=== PATIENT | male | born 1975 | race Caucasian/White ===

== ENCOUNTER 2017-09-28 19:44 | Inpatient (IN) | payer BC ==
[~2017-09-28] VITALS: Ht 175.3 cm; Wt 81.1 kg
[~2017-09-28 19:44] MED LIST: CYCL1PAK PO; DOCU1CAP39 PO; IBUP800 PO; OXYC5 PO
[2017-09-28 19:56] VITALS: BP 138/78; PULSE 73; RESP 16; TEMP 100; O2SAT 95
[2017-09-28 21:15] LABS: BILIRUBIN, URINE NEG (NEG); BLOOD, URINE TRACE (NEG); GLUCOSE,URINE NEG (NEG); KETONE, URINE NEG (NEG); NITRITE,URINE NEG (NEG); URINE COLOR YELLOW (YELLW/STRAW); URINE LEUKOCYTE ESTERASE SMALL (NEG)
[2017-09-28 21:34] LABS: BACTERIA, URINE RARE /hpf; RBC, URINE 0-3 /hpf (0-3); SQUAMOUS EPITHELIAL CELL URINE 0-5 /hpf (0-5); WHITE BLOOD CELL CLUMPS MOD
[2017-09-28 21:48] VITALS: TEMP 101.4
[2017-09-28] MEDS ORDERED: SODIUM CHLOR 0.9% 1000 ML INJ 1,000 ML IV SCH (21:55)
--- NOTE | 2017-09-28 21:58 | PD ---
HPI Chief Complaint: Flank/Kidney Pain Time Seen by Provider: 21:43 Travel History International Travel<30 days: No Contact w/Intl Traveler<30days: No Traveled to known affect area: No History of Present Illness HPI Patient is a 41-year-old male presents emergency department with right flank pain dysuria and just not feeling well for the past day and a half. Patient is in town as he participates in dirt bike racing. He states he has had urinary tract infection in the past only one time and has been feeling very poorly over the past few days. He is also endorsing some nausea without vomiting, just generally not feeling well at all. No chest pain no shortness of breath no blood in urine no fevers prior to arrival. Symptoms for the past few days, gradually worsening. PFSH Past Medical History Arthritis: Yes (FROM PAST SX) Cardiovascular Problems: No Diminished Hearing: No Endocrine: No Neurologic: Yes Psychiatric: No Respiratory: Yes (HX PNEUMOTHORAX) Migraines: Yes Tetanus Vaccination: < 5 Years Influenza Vaccination: No Past Surgical History Abdominal Surgery: No Body Medical Devices: PLATES/SCREWS Cardiac Surgery: No Ear Surgery: No Endocrine Surgery: No Eye Surgery: No Genitourinary Surgery: No Gynecologic Surgery: No Oral Surgery: No Thoracic Surgery: No Tonsillectomy: Yes Other Surgery: Yes (RIGHT KNEE SX/ BILATERAL WRIST SX) Social History Alcohol Use: Yes (3X A WEEK) Tobacco Use: No (MARIJUANA) Substance Use: No Allergies-Medications (Allergen,Severity, Reaction): Coded Allergies: penicillin G (Unverified Allergy, Unknown, 09/28/17) Reported Meds & Prescriptions Reported Meds & Active Scripts Active Review of Systems Except as stated in HPI: all other systems reviewed are Neg Physical Exam Narrative GENERAL: WD/WN in nad SKIN: Hot and dry. HEAD: Atraumatic. Normocephalic. EYES: Pupils equal and round. No scleral icterus. No injection or drainage. ENT: No nasal bleeding or discharge. Mucous membranes pink and moist. NECK: Trachea midline. No JVD. CARDIOVASCULAR: Regular rate and rhythm. RESPIRATORY: No accessory muscle use. Clear to auscultation. Breath sounds equal bilaterally. GASTROINTESTINAL: Abdomen soft, non-tender, nondistended. Hepatic and splenic margins not palpable. Very mild right-sided CVA tenderness. MUSCULOSKELETAL: Extremities without clubbing, cyanosis, or edema. No obvious deformities. NEUROLOGICAL: Awake and alert. No obvious cranial nerve deficits. Motor grossly within normal limits. Five out of 5 muscle strength in the arms and legs. Normal speech. PSYCHIATRIC: Appropriate mood and affect; insight and judgment normal. Data Data Last Documented VS Vital Signs Date Time Temp Pulse Resp B/P (MAP) Pulse Ox O2 Delivery O2 Flow Rate FiO2 09/29/17 00:33 20 09/28/17 21:48 101.4 09/28/17 19:56 73 138/78 (98) 95 Orders Orders Urinalysis - C+S If Indicated (09/28/17 21:02) Urine Culture (09/28/17 20:20) Complete Blood Count With Diff (09/28/17 21:55) Comprehensive Metabolic Panel (09/28/17 21:55) Lipase (09/28/17 21:55) Iv Access Insert/Monitor (09/28/17 21:55) Ecg Monitoring (09/28/17 21:55) Oximetry (09/28/17 21:55) Sodium Chlor 0.9% 1000 Ml Inj (Ns 1000 M (09/28/17 21:55) Sodium Chloride 0.9% Flush (Ns Flush) (09/28/17 22:00) Ketorolac Inj (Toradol Inj) (09/28/17 22:00) Lactic Acid (09/28/17 21:56) Sodium Chlor 0.9% 1000 Ml Inj (Ns 1000 M (09/28/17 22:00) Ct Abd/Pel W/O Iv Contrast (09/28/17 ) Blood Culture (09/28/17 23:09) Ceftriaxone Inj (Rocephin Inj) (09/28/17 23:15) Sodium Chlor 0.9% 1000 Ml Inj (Ns 1000 M (09/28/17 23:30) Acetaminophen (Tylenol) (09/28/17 23:30) Ondansetron Inj (Zofran Inj) (09/28/17 23:30) Diphenhydramine (Benadryl) (09/29/17 00:45) Influenzae A/B Antigen (09/29/17 00:38) Ibuprofen (Motrin) (09/29/17 00:45) Ondansetron Inj (Zofran Inj) (09/29/17 01:00) Diphenhydramine Inj (Benadryl Inj) (09/29/17 01:00) Admit Order (Ed Use Only) (09/29/17 ) Ceftriaxone Inj (Rocephin Inj) (09/29/17 23:00) Morphine Inj (Morphine Inj) (09/29/17 01:00) Place In Observation (09/29/17 ) Vital Signs (Adult) Q4H (09/29/17 00:56) Activity Oob With Assistance (09/29/17 00:56) Diet Regular Basic (09/29/17 Breakfast) Sodium Chlor 0.9% 1000 Ml Inj (Ns 1000 M (09/29/17 00:56) Sodium Chloride 0.9% Flush (Ns Flush) (09/29/17 01:00) Sodium Chloride 0.9% Flush (Ns Flush) (09/29/17 09:00) Acetaminophen (Tylenol) (09/29/17 01:00) Ondansetron Inj (Zofran Inj) (09/29/17 01:00) Basic Metabolic Panel (Bmp) (09/30/17 06:00) Complete Blood Count With Diff (09/30/17 06:00) Naloxone Inj (Narcan Inj) (09/29/17 01:00) Docusate Sodium-Senna (Velma-Colace) (09/29/17 09:00) Magnesium Hydroxide Liq (Milk Of Magnesi (09/29/17 01:00) Sennosides (Senokot) (09/29/17 01:00) Bisacodyl Supp (Dulcolax Supp) (09/29/17 01:00) Lactulose Liq (Lactulose Liq) (09/29/17 01:00) Labs Laboratory Tests Test 09/28/17 20:20 09/28/17 22:15 Urine Color YELLOW Urine Turbidity CLEAR Urine pH 6.0 Urine Specific [place] 1.010 Urine Protein NEG mg/dL Urine Glucose (UA) NEG mg/dL Urine Ketones NEG mg/dL Urine Occult Blood TRACE Urine Nitrite NEG Urine Bilirubin NEG Urine Urobilinogen 0.2 MG/DL Urine Leukocyte Esterase SMALL Urine RBC 0-3 /hpf Urine WBC 20-24 /hpf Urine WBC Clumps MOD Urine Squamous Epithelial Cells 0-5 /hpf Urine Bacteria RARE /hpf Microscopic Urinalysis Comment CULTURE INDICATED White Blood Count 18.9 TH/MM3 Red Blood Count 4.86 MIL/MM3 Hemoglobin 15.2 GM/DL Hematocrit 43.9 % Mean Corpuscular Volume 90.3 FL Mean Corpuscular Hemoglobin 31.2 PG Mean Corpuscular Hemoglobin Concent 34.5 % Red Cell Distribution Width 13.7 % Platelet Count 329 TH/MM3 Mean Platelet Volume 7.1 FL Neutrophils (%) (Auto) 85.4 % Lymphocytes (%) (Auto) 7.2 % Monocytes (%) (Auto) 6.2 % Eosinophils (%) (Auto) 0.3 % Basophils (%) (Auto) 0.9 % Neutrophils # (Auto) 16.0 TH/MM3 Lymphocytes # (Auto) 1.4 TH/MM3 Monocytes # (Auto) 1.2 TH/MM3 Eosinophils # (Auto) 0.1 TH/MM3 Basophils # (Auto) 0.2 TH/MM3 CBC Comment DIFF FINAL Differential Comment Blood Urea Nitrogen 13 MG/DL Creatinine 1.00 MG/DL Random Glucose 103 MG/DL Total Protein 8.1 GM/DL Albumin 4.2 GM/DL Calcium Level 8.9 MG/DL Alkaline Phosphatase 99 U/L Aspartate Amino Transf (AST/SGOT) 22 U/L Alanine Aminotransferase (ALT/SGPT) 29 U/L Total Bilirubin 0.5 MG/DL Sodium Level 137 MEQ/L Potassium Level 3.7 MEQ/L Chloride Level 103 MEQ/L Carbon Dioxide Level 26.6 MEQ/L Anion Gap 7 MEQ/L Estimat Glomerular Filtration Rate 82 ML/MIN Lactic Acid Level 1.6 mmol/L Lipase 62 U/L [facility] Medical Decision Making Medical Screen Exam Complete: Yes Emergency Medical Condition: Yes Differential Diagnosis UTI, pyelonephritis, kidney stone, sepsis, dehydration, influenza Narrative Course Patient room to the emergency department, he appears nontoxic but is febrile and does have an elevated white blood cell count 18,000. Once his white blood cell count had returned the patient technically meets SIRS criteria and septic and was started on antibiotics. He is given 2 L normal saline although his initial act as it was 1.6. Toradol and Tylenol were given for pain and fever and Zofran for nausea but the patient states he is actually feeling worse after his medications. Ibuprofen and Benadryl ordered as the patient states he needed something to help him sleep and he vomited these up. The patient with UTI and sepsis and probable right-sided pyelonephritis does meet admission criteria and I recommended that he states he is unable to tolerate his medicines at this time. He was given Rocephin IV. Discussed with Dr. Ching for admission. His vital signs are stable lactic acid negative he can go to regular telemetry Diagnosis Primary Impression: Sepsis secondary to UTI Admitting Information Admitting Physician Requests: Admit Condition: Stable Wali Coles MD Sep 28, 2017 21:58
[2017-09-28] MEDS ORDERED: KETOROLAC TROMETHAMINE 30 MG/ML (IVP) VIAL IVP ONE (22:00)
[2017-09-28] MEDS ORDERED: SODIUM CHLOR 0.9% 1000 ML INJ 1,000 ML IV ONE ×2 (22:00→23:30)
[2017-09-28] MEDS ORDERED: SODIUM CHLORIDE 0.9% FLUSH 10 ML FLUSH IV FLUSH PRN (22:00)
[2017-09-28 22:38] LABS: BASOPHIL # 0.2 TH/MM3 (0-0.2); BASOPHIL % 0.9 % (0.0-2.0); EOSINOPHIL # 0.1 TH/MM3 (0-0.4); EOSINOPHIL % 0.3 % (0.0-4.0); HEMATOCRIT 43.9 % (39.0-51.0); HEMOGLOBIN 15.2 GM/DL (13.0-17.0); LYMPH % 7.2 % (9.0-44.0); LYMPHOCYTE # 1.4 TH/MM3 (1.0-4.8); MEAN CELL VOLUME 90.3 FL (80.0-100.0); MEAN CORPUSCULAR HEMOGLOBIN 31.2 PG (27.0-34.0); MEAN CORPUSCULAR HGB CONC 34.5 % (32.0-36.0); MEAN PLATELET VOLUME 7.1 FL (7.0-11.0); MONO % 6.2 % (0.0-8.0); MONOCYTE # 1.2 TH/MM3 (0-0.9); NEUT % 85.4 % (16.0-70.0); PLATELET COUNT 329 TH/MM3 (150-450); RED BLOOD COUNT 4.86 MIL/MM3 (4.50-5.90); RED CELL DISTRIBUTION WIDTH 13.7 % (11.6-17.2); WHITE BLOOD COUNT 18.9 TH/MM3 (4.0-11.0)
[2017-09-28 22:41] LABS: CHLORIDE 103 MEQ/L (98-107); SODIUM (NA) 137 MEQ/L (136-145)
[2017-09-28 22:46] LABS: CALCIUM 8.9 MG/DL (8.5-10.1)
[2017-09-28 22:47] LABS: ALBUMIN 4.2 GM/DL (3.4-5.0); BICARBONATE 26.6 MEQ/L (21.0-32.0); BLOOD UREA NITROGEN 13 MG/DL (7-18); GLUCOSE,RANDOM 103 MG/DL (74-106)
[2017-09-28 22:50] VITALS: BP 148/74; PULSE 62; RESP 20; O2SAT 99
[2017-09-28 22:50] LABS: ALT (GPT) 29 U/L (12-78); AST (GOT) 22 U/L (15-37); GLOMERULAR FILTRATION RATE 82 ML/MIN (>89)
[2017-09-28 22:51] LABS: TOTAL BILIRUBIN ADULT 0.5 MG/DL (0.2-1.0); TOTAL PROTEIN 8.1 GM/DL (6.4-8.2)
[2017-09-28 22:53] LABS: ALKALINE PHOSPHATASE 99 U/L (45-117)
--- NOTE | 2017-09-28 23:12 | RADRPT ---
EXAM DATE/TIME: 09/28/2017 22:38 [facility] COMPARISON: No previous studies available for comparison. INDICATIONS : Gross hematuria. Bilateral flank pain. ORAL CONTRAST: No oral contrast ingested. RADIATION DOSE: 8.79 CTDIvol (mGy) MEDICAL HISTORY : None SURGICAL HISTORY : None. ENCOUNTER: Initial ACUITY: 1 day PAIN SCALE: 6/10 LOCATION: Bilateral flank TECHNIQUE: Volumetric scanning of the abdomen and pelvis was performed. Using automated exposure control and ad justment of the mA and/or kV according to patient size, radiation dose was kept as low as reasonably achievable to obtain optimal diagnostic quality images. DICOM format image data is available electro nically for review and comparison. FINDINGS: LOWER LUNGS: The visualized lower lungs are clear. LIVER: Homogeneous density without lesion. There is no dilation of the biliary tree. No calcified gallston es. SPLEEN: Normal size without lesion. PANCREAS: Within normal limits. KIDNEYS: Normal in size and shape. There is no mass, stone, or hydronephrosis. ADRENAL GLANDS: Within normal limits. VASCULAR: There is no aortic aneurysm. BOWEL/MESENTERY: The stomach, small bowel, and colon demonstrate no acute abnormality. There is no free intraperitone al air or fluid. ABDOMINAL WALL: Within normal limits. RETROPERITONEUM: There is no lymphadenopathy. BLADDER: No wall thickening or mass. REPRODUCTIVE: Within normal limits. A few benign phleboliths are identified in the deep left pelvis. INGUINAL: There is no lymphadenopathy or hernia. MUSCULOSKELETAL: Within normal limits for patient age. Incidental note is made of a 2.7 cm intramuscular lipoma in the left latissimus muscle belly. CONCLUSION: 1. 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 2. Otherwise negative with no acute intraperitoneal or pelvic process to explain current clinical sym ptoms. Specifically, no findings of renal or ureteral calculi or obstruction. Matt Asencio MD on September 28, 2017 at 23:04 Board Certified Radiologist. This report was verified electronically.
[2017-09-28] MEDS ORDERED: cefTRIAXone INJ 1,000 MG in SODIUM CHLORIDE 0.9% INJ 100 ML IV ONE (23:15)
[2017-09-28] MEDS ORDERED: ACETAMINOPHEN 500 MG CPLT PO ONE (23:30)
[2017-09-28] MEDS ORDERED: ONDANSETRON HCL 4 MG/2 ML VIAL IV PUSH ONE (23:30)
[2017-09-28 23:50] VITALS: BP_SYST 129; BP_SYST 143; BP_DIAS 66; BP_DIAS 79; PULSE 70; PULSE 76; RESP 20
[2017-09-29] VITALS (8 sets, daily range): BP systolic 118–145; BP diastolic 64–82; PULSE 71–80; RESP 16–20; TEMP 98.3–102.7; O2SAT 94–98
[2017-09-29] MEDS ORDERED: IBUPROFEN 600 MG TAB PO ONE (00:45)
[2017-09-29] MEDS ORDERED: diphenhydrAMINE HCL 25 MG CAP PO ONE (00:45)
[2017-09-29] MEDS ORDERED: SENNOSIDES 8.6 MG TAB PO PRN (01:00)
[2017-09-29] MEDS ORDERED: ONDANSETRON HCL 4 MG/2 ML VIAL IV PUSH ONE (01:00)
[2017-09-29] MEDS ORDERED: BISACODYL 10 MG SUPP RECTAL PRN (01:00)
[2017-09-29] MEDS ORDERED: SODIUM CHLORIDE 0.9% FLUSH 10 ML FLUSH IV FLUSH PRN (01:00)
[2017-09-29] MEDS ORDERED: NALOXONE HCL 0.4 MG/ML AMP IV PUSH PRN (01:00)
[2017-09-29] MEDS ORDERED: diphenhydrAMINE HCL 50 MG/ML VIAL IV PUSH ONE (01:00)
[2017-09-29] MEDS ORDERED: MAGNESIUM HYDROXIDE SUSP 30 ML CUP PO PRN (01:00)
[2017-09-29] MEDS ORDERED: LACTULOSE SYRUP 20 GM/30 ML CUP PO PRN (01:00)
[2017-09-29] MEDS: MORPHINE SULFATE 2 MG/ML INJ IV PUSH PRN ×4 (02:42→16:43)
[2017-09-29] MEDS: SODIUM CHLOR 0.9% 1000 ML INJ 1,000 ML IV SCH ×2 (02:44→09:02)
[2017-09-29] MEDS: ONDANSETRON HCL 4 MG/2 ML VIAL IVP PRN ×3 (06:57→20:19)
[2017-09-29] MEDS: DOCUSATE SODIUM 50 MG/SENNA 8.6 MG TAB PO SCH ×2 (09:00→20:19)
[2017-09-29] MEDS: SODIUM CHLORIDE 0.9% FLUSH 10 ML FLUSH IV FLUSH SCH ×2 (09:00→20:20)
--- NOTE | 2017-09-29 09:51 | HHI.HP ---
[facility] Primary [facility] Physician No Primary Care Physician Admission Diagnosis UTI/Sepsis Diagnoses: (1) Sepsis secondary to UTI Chief Complaint: Dysuria Travel History International Travel<30 Days: No Contact w/Intl Traveler <30 Da: No Traveled to Known Affected Are: No Sepsis Criteria SIRS Criteria (2 or more): Temp > 100.9 or < 96.8, WBC > 12696, < 4000 or > 10 % bands Sepsis Criteria (SIRS+source): Infect source susp/known History of Present Illness 41-year-old male without any significant past medical history presented to the ED with 3 day history of dysuria ,bilateral flank pain described as Dusty horse and febrile episodes patient also reports one day history of nausea and vomiting. States generally hasn't been feeling well over the past few days. He denies any chest pain or shortness of breath. Denies any gross hematuria. Review of Systems Except as stated in HPI: all other systems reviewed are Neg Past Family Social History Past Medical History Arthritis: Yes (FROM PAST SX) Respiratory: Yes (HX PNEUMOTHORAX) Migraines: Yes Past Surgical History Body Medical Devices: PLATES/SCREWS Tonsillectomy: Yes (RIGHT KNEE SX/ BILATERAL WRIST SX) \ Reported Medications Not currently on any medication Allergies: Coded Allergies: penicillin G (Unverified Allergy, Unknown, 09/28/17) Family History Denies any family history of hypertension, diabetes, heart disease Social History Alcohol Use: Yes (3X A WEEK) Tobacco Use: No (MARIJUANA) Substance Use: No Physical Exam Vital Signs Vital Signs Date Time Temp Pulse Resp B/P (MAP) Pulse Ox O2 Delivery O2 Flow Rate FiO2 09/29/17 08:00 98.3 73 20 118/75 (89) 96 09/29/17 04:12 98.9 75 20 125/66 (85) 96 09/29/17 03:52 20 09/29/17 02:45 101.1 73 20 122/69 (86) 98 09/29/17 01:48 102.7 09/29/17 01:18 102.5 80 20 131/64 (86) 98 09/29/17 00:33 20 09/28/17 23:50 70 20 129/66 (87) 09/28/17 23:50 76 20 143/79 (100) 09/28/17 22:50 62 20 148/74 (98) 99 09/28/17 21:48 101.4 09/28/17 21:42 20 09/28/17 19:56 100.0 73 16 138/78 (98) 95 Physical Exam GENERAL: This is a well-nourished, well-developed patient, in no apparent distress. SKIN: No rashes, ecchymoses or lesions. Cool and dry. HEAD: Atraumatic. Normocephalic. No temporal or scalp tenderness. EYES: Pupils equal round and reactive. Extraocular motions intact. No scleral icterus. No injection or drainage. ENT: Nose without bleeding, purulent drainage or septal hematoma. Throat without erythema, tonsillar hypertrophy or exudate. Uvula midline. Airway patent. NECK: Trachea midline. No JVD or lymphadenopathy. Supple, nontender, no meningeal signs. CARDIOVASCULAR: Regular rate and rhythm without murmurs, gallops, or rubs. RESPIRATORY: Clear to auscultation. Breath sounds equal bilaterally. No wheezes , rales, or rhonchi. GASTROINTESTINAL: Abdomen soft, non-tender, nondistended. No hepato-splenomegaly , or palpable masses. No guarding. MUSCULOSKELETAL: Extremities without clubbing, cyanosis, or edema. No joint tenderness, effusion, or edema noted. No calf tenderness. Negative Homans sign bilaterally. NEUROLOGICAL: Awake and alert. Cranial nerves II through XII intact. Motor and sensory grossly within normal limits. Five out of 5 muscle strength in all muscle groups. Normal speech. Laboratory Laboratory Tests Test 09/28/17 20:20 09/28/17 22:15 Urine Color YELLOW Urine Turbidity CLEAR Urine pH 6.0 Urine Specific [place] 1.010 Urine Protein NEG Urine Glucose (UA) NEG Urine Ketones NEG Urine Occult Blood TRACE Urine Nitrite NEG Urine Bilirubin NEG Urine Urobilinogen 0.2 Urine Leukocyte Esterase SMALL Urine RBC 0-3 Urine WBC 20-24 Urine WBC Clumps MOD Urine Squamous Epithelial Cells 0-5 Urine Bacteria RARE Microscopic Urinalysis Comment CULTURE INDICATED White Blood Count 18.9 Red Blood Count 4.86 Hemoglobin 15.2 Hematocrit 43.9 Mean Corpuscular Volume 90.3 Mean Corpuscular Hemoglobin 31.2 Mean Corpuscular Hemoglobin Concent 34.5 Red Cell Distribution Width 13.7 Platelet Count 329 Mean Platelet Volume 7.1 Neutrophils (%) (Auto) 85.4 Lymphocytes (%) (Auto) 7.2 Monocytes (%) (Auto) 6.2 Eosinophils (%) (Auto) 0.3 Basophils (%) (Auto) 0.9 Neutrophils # (Auto) 16.0 Lymphocytes # (Auto) 1.4 Monocytes # (Auto) 1.2 Eosinophils # (Auto) 0.1 Basophils # (Auto) 0.2 CBC Comment DIFF FINAL Differential Comment Blood Urea Nitrogen 13 Creatinine 1.00 Random Glucose 103 Total Protein 8.1 Albumin 4.2 Calcium Level 8.9 Alkaline Phosphatase 99 Aspartate Amino Transf (AST/SGOT) 22 Alanine Aminotransferase (ALT/SGPT) 29 Total Bilirubin 0.5 Sodium Level 137 Potassium Level 3.7 Chloride Level 103 Carbon Dioxide Level 26.6 Anion Gap 7 Estimat Glomerular Filtration Rate 82 Lactic Acid Level 1.6 Lipase 62 Date/Time Source Procedure Growth Status 09/28/17 23:40 Blood Peripheral Aerobic Blood Culture Pending Received 09/28/17 23:40 Blood Peripheral Anaerobic Blood Culture Pending Received 09/29/17 00:40 Nasal Washing Influenza Types A,B Antigen (YOHAN) - Final Positive For Flu A Antigen Complete 09/28/17 20:20 Urine Clean Catch Urine Culture Pending Received Result Diagram: 09/28/17 2215 09/28/17 2215 Imaging Last Impressions Abdomen/Pelvis CT 09/28/17 0000 Signed Impressions: Service Date/Time: September 22:38 - CONCLUSION: 1. 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 2. Otherwise negative with no acute intraperitoneal or pelvic process to explain current clinical symptoms. Specifically, no findings of renal or ureteral calculi or obstruction. Matt Asencio MD Septic Shock Reassessment Septic shock perfusion: reassessment completed Caprini VTE Risk Assessment Caprini VTE Risk Assessment: No/Low Risk (score <= 1) Caprini Risk Assessment Model Point Value = 1 Point Value = 2 Point Value = 3 Point Value = 5 Age 41-60 Minor surgery BMI > 25 kg/m2 Swollen legs Varicose veins or History of unexplained or recurrent spontaneous Oral contraceptives or hormone replacement Sepsis (< 1 month) Serious lung disease, including pneumonia (< 1 month) Abnormal pulmonary function Acute myocardial infarction Congestive heart failure (< 1 month) History of inflammatory bowel disease Medical patient at bed rest Age 61-74 Arthroscopic surgery Major open surgery (> 45 min) Laparoscopic surgery (> 45 min) Malignancy Confined to bed (> 72 hours) Immobilizing plaster cast Central venous access Age >= 75 History of VTE Family history of VTE Factor V Leiden Prothrombin 80260L Lupus anticoagulant Anticardiolipin antibodies Elevated serum homocysteine Heparin-induced thrombocytopenia Other congenital or acquired thrombophilia Stroke (< 1 month) Elective arthroplasty Hip, pelvis, or leg fracture Acute spinal cord injury (< 1 month) Prophylaxis Regimen Total Risk Factor Score Risk Level Prophylaxis Regimen 0-1 Low Early ambulation 2 Moderate Order ONE of the following: *Sequential Compression Device (SCD) *Heparin 5000 units SQ BID 3-4 Higher Order ONE of the following medications: *Heparin 5000 units SQ TID *Enoxaparin/Lovenox 40 mg SQ daily (WT < 150 kg, CrCl > 30 mL/min) *Enoxaparin/Lovenox 30 mg SQ daily (WT < 150 kg, CrCl > 10-29 mL/min) *Enoxaparin/Lovenox 30 mg SQ BID (WT < 150 kg, CrCl > 30 mL/min) AND/OR *Sequential Compression Device (SCD) 5 or more Highest Order ONE of the following medications: *Heparin 5000 units SQ TID (Preferred with Epidurals) *Enoxaparin/Lovenox 40 mg SQ daily (WT < 150 kg, CrCl > 30 mL/min) *Enoxaparin/Lovenox 30 mg SQ daily (WT < 150 kg, CrCl > 10-29 mL/min) *Enoxaparin/Lovenox 30 mg SQ BID (WT < 150 kg, CrCl > 30 mL/min) AND *Sequential Compression Device (SCD) Assessment and Plan Problem List: (1) Sepsis secondary to UTI ICD Code: A41.9 - Sepsis, unspecified organism; N39.0 - Urinary tract infection , site not specified Status: Acute (2) Influenza A ICD Code: J10.1 - Influenza due to other identified influenza virus with other respiratory manifestations (3) Pyelonephritis ICD Code: N12 - Tubulo-interstitial nephritis, not specified as acute or chronic Assessment and Plan 41-year-old man with Sepsis: Temp > 100.9 or < 96.8, WBC > 50529, < 4000 or > 10% bands. Infect source susp/known (pyelonephritis/UTI) Currently on Rocephin pending culture reports Pyelonephritis CT abdomen noted and review by me without any significant finding Check ultrasound kidney/renal/bladder Currently on Rocephin pending urine culture Influenza A Start Tamiflu 75 mg BID x 5 days DVT prophylaxis:Low risk for VTE Code Status Full code Discussed Condition With Patient Physician Certification 2 Midnight Certification Type: Admission for Inpatient Services Order for Inpatient Services The services are ordered in accordance with Medicare regulations or non- Medicare payer requirements, as applicable. In the case of services not specified as inpatient-only, they are appropriately provided as inpatient services in accordance with the 2-midnight benchmark. Estimated LOS (days): 2 days is the estimated time the patient will need to remain in the hospital, assuming treatment plan goals are met and no additional complications. Post-Hospital Plan: Not yet determined Bal Garcia MD Sep 29, 2017 09:51
[2017-09-29 11:24] LABS: BILIRUBIN, URINE NEG (NEG); BLOOD, URINE MOD (NEG); GLUCOSE,URINE NEG (NEG); KETONE, URINE NEG (NEG); NITRITE,URINE NEG (NEG); URINE COLOR YELLOW (YELLW/STRAW); URINE LEUKOCYTE ESTERASE SMALL (NEG)
--- NOTE | 2017-09-29 11:29 | RADRPT ---
EXAM DATE/TIME: 09/29/2017 11:01 [facility] COMPARISON: No previous studies available for comparison. INDICATIONS : Flank pain. MEDICAL HISTORY : Migraine. Arthritis. SURGICAL HISTORY : Tonsillectomy. Orthopedic surgeries. ENCOUNTER: Initial ACUITY: 1 day PAIN SCORE: 3/10 LOCATION: Bilateral flank MEASUREMENTS: RIGHT KIDNEY: 11.7 x 4.6 x 5.7 cm LEFT KIDNEY: 11.7 x 6.4 x 5.7 cm FINDINGS: RIGHT KIDNEY: Renal cortex is normal in thickness and echotexture. No hydronephrosis, stone, or mass. LEFT KIDNEY: Renal cortex is normal in thickness and echotexture. No hydronephrosis, stone, or mass. BLADDER: Within normal limits given the degree of distension. The prostate gland is minimally prominent and m easures 4.9 x 3.6 x 4.7 cm. CONCLUSION: 1. Unremarkable kidneys and urinary bladder. 2. Minimally prominent prostate measuring 4.9 x 3.6 x 4.7 cm. Wali Cornejo MD on September 29, 2017 at 11:25 Board Certified Radiologist. This report was verified electronically.
[2017-09-29 11:33] LABS: RBC, URINE 0-3 /hpf (0-3); SQUAMOUS EPITHELIAL CELL URINE 0-5 /hpf (0-5)
[2017-09-29] MEDS: OSELTAMIVIR PHOSPHATE 75 MG CAP PO SCH ×2 (11:56→20:19)
[2017-09-29] MEDS: ACETAMINOPHEN/HYDROcodone 325 MG/5 MG TAB PO PRN (20:19)
[2017-09-29] MEDS: ACETAMINOPHEN 325 MG TAB PO PRN (22:05)
[2017-09-29] MEDS: ALPRAZolam 0.5 MG TAB PO PRN (22:05)
[2017-09-29] MEDS: cefTRIAXone INJ 1,000 MG in SODIUM CHLORIDE 0.9% INJ 100 ML IV SCH (22:06)
[2017-09-30 00:17] VITALS: BP 111/60; PULSE 58; RESP 16; TEMP 99.3; O2SAT 96
[2017-09-30] MEDS: SODIUM CHLOR 0.9% 1000 ML INJ 1,000 ML IV SCH ×3 (01:13→22:13)
[2017-09-30 04:00] VITALS: TEMP 100.3
[2017-09-30] MEDS: ACETAMINOPHEN/HYDROcodone 325 MG/5 MG TAB PO PRN (04:40)
[2017-09-30] MEDS: ONDANSETRON HCL 4 MG/2 ML VIAL IVP PRN ×2 (04:40→15:45)
[2017-09-30] MEDS: ACETAMINOPHEN 325 MG TAB PO PRN ×2 (04:45→23:30)
[2017-09-30 08:00] VITALS: BP 125/82; PULSE 60; RESP 18; TEMP 97.4; O2SAT 97
--- NOTE | 2017-09-30 08:07 | HHI.PR ---
Subjective Remarks Patient seen and examined today for follow-up on sepsis, urinary tract infection , influenza infection. Patient still febrile with T-max 100.8. Patient states that the morphine was causing have severe nausea. He does not want morphine anymore. Patient states that overnight they start him on Lortab, Xanax which seemed to help for his pain and anxiety. Patient did not eat much yesterday. However he states that he does feel a little better today Objective Vitals Vital Signs Date Time Temp Pulse Resp B/P (MAP) Pulse Ox O2 Delivery O2 Flow Rate FiO2 09/30/17 04:00 100.3 09/30/17 00:17 99.3 58 16 111/60 (77) 96 09/29/17 20:21 100.6 74 16 129/76 (93) 97 09/29/17 16:00 100.8 71 20 131/67 (88) 94 09/29/17 12:00 100.7 80 16 145/82 (103) 96 I/O 09/29/17 09/29/17 09/29/17 09/30/17 09/30/17 09/30/17 07:00 15:00 23:00 07:00 15:00 23:00 Intake Total 3420 ml 100 ml 1480 ml Output Total 300 ml Balance 3120 ml 100 ml 1480 ml Intake Oral 320 ml 480 ml IV Total 3100 ml 100 ml 1000 ml Output Urine Total 300 ml # Voids 1 8 6 Result Diagram: 09/28/175 09/28/175 Objective Remarks GENERAL: Well-developed, well-nourished, in no acute distress. alert and orientated HEENT: Head is normocephalic without any lesions or masses noted. Facial features are symmetric. Eyes: Extraocular muscles are intact. Conjunctivae were clear. NECK: Supple without any masses. Trachea midline no deviation. No JVD, CARDIAC: Regular rhythm, regular rate. S1/S2 are heard. No murmurs gallops or rubs. LUNGS: Clear to auscultation bilaterally. No wheeze, rhonchi or rales. No use of accessory muscles on inspiration or expiration. ABDOMEN: Soft, nontender. Nondistended. Bowel sounds heard in all 4 quadrants. No organomegaly or masses. Negative rebound, negative guarding. Positive right CVA tenderness EXTREMITIES: No edema, pulses are equal bilaterally. No cyanosis or clubbing NEUROLOGY: Mood and affect appear appropriate. Cranial nerves II through XII grossly intact. Moving all extremities, speech is clear Urinary Catheter: No Vascular Central Line Catheter: No A/P Assessment and Plan Sepsis: Patient continues to meet sepsis criteria with febrile illness, leukocytosis , urinary tract infection, influenza a infection Patient continued on Rocephin, Tamiflu Blood cultures are negative for 1 day Awaiting cultures for further recommendations Pyelonephritis, clinical Patient with fever, urinary tract infection, CVA tenderness CT abdomen noted and review by me without any significant finding Ultrasound kidney/renal/bladder did not indicate any acute abnormality. Does indicate mildly enlarged prostate Continue Rocephin Follow cultures for appropriate antibiotic Influenza A Tamiflu 75 mg BID x 5 days DVT prophylaxis: Low risk, early ambulation Discharge Planning Discharge planning 24-48 hours depending on patient response to treatment. Patient needs to be afebrile. Awaiting cultures for appropriate antibiotics Trevon Ramirez Sep 30, 2017 08:07
[2017-09-30] MEDS: SODIUM CHLORIDE 0.9% FLUSH 10 ML FLUSH IV FLUSH SCH ×2 (08:24→23:30)
[2017-09-30] MEDS: OSELTAMIVIR PHOSPHATE 75 MG CAP PO SCH ×2 (08:24→23:29)
[2017-09-30] MEDS: DOCUSATE SODIUM 50 MG/SENNA 8.6 MG TAB PO SCH ×2 (08:24→21:00)
[2017-09-30] MEDS ORDERED: TEMAZEPAM 7.5 MG CAP PO PRN (08:30)
[2017-09-30] MEDS ORDERED: ACETAMINOPHEN/HYDROcodone 325 MG/5 MG TAB PO PRN (08:30)
[2017-09-30] MEDS: ACETAMINOPHEN/HYDROcodone 325 MG/10 MG TAB PO PRN ×2 (08:38→15:45)
[2017-09-30 09:05] LABS: AUTOMATED NEUTROPHIL # 16.8 TH/MM3 (1.8-7.7); BASOPHIL # 0.1 TH/MM3 (0-0.2); BASOPHIL % 0.3 % (0.0-2.0); EOSINOPHIL # 0.1 TH/MM3 (0-0.4); EOSINOPHIL % 0.3 % (0.0-4.0); HEMATOCRIT 36.6 % (39.0-51.0); HEMOGLOBIN 12.7 GM/DL (13.0-17.0); LYMPH % 8.3 % (9.0-44.0); LYMPHOCYTE # 1.6 TH/MM3 (1.0-4.8); MEAN CELL VOLUME 89.9 FL (80.0-100.0); MEAN CORPUSCULAR HEMOGLOBIN 31.1 PG (27.0-34.0); MEAN CORPUSCULAR HGB CONC 34.6 % (32.0-36.0); MEAN PLATELET VOLUME 7.1 FL (7.0-11.0); MONO % 6.3 % (0.0-8.0); MONOCYTE # 1.2 TH/MM3 (0-0.9); NEUT % 84.8 % (16.0-70.0); PLATELET COUNT 237 TH/MM3 (150-450); RED BLOOD COUNT 4.07 MIL/MM3 (4.50-5.90); RED CELL DISTRIBUTION WIDTH 12.6 % (11.6-17.2); WHITE BLOOD COUNT 19.8 TH/MM3 (4.0-11.0)
[2017-09-30 09:13] LABS: BICARBONATE 28.2 MEQ/L (21.0-32.0); CALCIUM 8.2 MG/DL (8.5-10.1)
[2017-09-30 09:17] LABS: CREATININE 0.85 MG/DL (0.60-1.30)
[2017-09-30 12:00] VITALS: BP 131/86; PULSE 56; RESP 18; TEMP 97.5; O2SAT 98
[2017-09-30 16:00] VITALS: BP 140/78; PULSE 57; RESP 18; TEMP 98.9; O2SAT 97
[2017-09-30 20:00] VITALS: BP 155/96; PULSE 71; RESP 17; TEMP 99; O2SAT 97
[2017-09-30] MEDS: cefTRIAXone INJ 1,000 MG in SODIUM CHLORIDE 0.9% INJ 100 ML IV SCH (23:03)
[2017-09-30] MEDS: ALPRAZolam 0.5 MG TAB PO PRN (23:30)
[2017-10-01] VITALS: BP 136/86; PULSE 56; RESP 17; TEMP 98.6; O2SAT 97
[2017-10-01 07:00] LABS: AUTOMATED NEUTROPHIL # 11.2 TH/MM3 (1.8-7.7); BASOPHIL # 0.1 TH/MM3 (0-0.2); BASOPHIL % 0.7 % (0.0-2.0); EOSINOPHIL # 0.2 TH/MM3 (0-0.4); EOSINOPHIL % 1.4 % (0.0-4.0); HEMATOCRIT 37.7 % (39.0-51.0); HEMOGLOBIN 12.9 GM/DL (13.0-17.0); LYMPH % 12.8 % (9.0-44.0); LYMPHOCYTE # 1.8 TH/MM3 (1.0-4.8); MEAN CELL VOLUME 90.5 FL (80.0-100.0); MEAN CORPUSCULAR HEMOGLOBIN 30.9 PG (27.0-34.0); MEAN CORPUSCULAR HGB CONC 34.1 % (32.0-36.0); MEAN PLATELET VOLUME 7.4 FL (7.0-11.0); MONO % 7.1 % (0.0-8.0); PLATELET COUNT 253 TH/MM3 (150-450); RED BLOOD COUNT 4.17 MIL/MM3 (4.50-5.90); RED CELL DISTRIBUTION WIDTH 12.6 % (11.6-17.2); WHITE BLOOD COUNT 14.4 TH/MM3 (4.0-11.0)
[2017-10-01 08:00] VITALS: BP 132/88; PULSE 62; RESP 16; TEMP 98.8; O2SAT 96
[2017-10-01] MEDS: SODIUM CHLOR 0.9% 1000 ML INJ 1,000 ML IV SCH (08:00)
[2017-10-01] MEDS: SODIUM CHLORIDE 0.9% FLUSH 10 ML FLUSH IV FLUSH SCH (08:49)
[2017-10-01] MEDS: DOCUSATE SODIUM 50 MG/SENNA 8.6 MG TAB PO SCH (08:53)
[2017-10-01] MEDS: OSELTAMIVIR PHOSPHATE 75 MG CAP PO SCH (08:53)
[2017-10-01] MEDS: ALPRAZolam 0.5 MG TAB PO PRN (08:57)
[2017-10-01] MEDS ORDERED: HYDR-3583 PO (11:12)
[2017-10-01] MEDS ORDERED: OSEL75 PO (11:12)
[2017-10-01] MEDS ORDERED: ZOFR4TAB3 SL (11:12)
[2017-10-01] MEDS ORDERED: LEVO750T3 PO (11:12)
--- NOTE | 2017-10-01 11:12 | HHI.DCPOC ---
Discharge Care Plan Diagnosis: (1) Sepsis secondary to UTI (2) Influenza A (3) Pyelonephritis Goals to Promote Your Health * To prevent worsening of your condition and complications * To maintain your health at the optimal level Directions to Meet Your Goals Take your medications as prescribed Follow your dietary instruction Follow activity as directed Keep your appointments as scheduled Take your immunizations and boosters as scheduled If your symptoms worsen call your PCP, if no PCP go to Urgent Care Center or Emergency Room Smoking is Dangerous to Your Health. Avoid second hand smoke Call the 24-hour hour crisis hotline for domestic abuse at Trevon Ramirez Oct 01, 2017 11:12
--- NOTE | 2017-10-01 11:21 | HHI.DS ---
Discharge Summary Admission Date Sep 29, 2017 at 10:05 Discharge Date: Oct 01, 2017 Admitting Diagnosis UTI/Sepsis (1) Sepsis secondary to UTI ICD Code: A41.9 - Sepsis, unspecified organism; N39.0 - Urinary tract infection , site not specified Status: Acute (2) Influenza A ICD Code: J10.1 - Influenza due to other identified influenza virus with other respiratory manifestations (3) Pyelonephritis ICD Code: N12 - Tubulo-interstitial nephritis, not specified as acute or chronic Procedures None Brief History - From Admission 41-year-old male without any significant past medical history presented to the ED with 3 day history of dysuria ,bilateral flank pain described as Dusty horse and febrile episodes patient also reports one day history of nausea and vomiting. States generally hasn't been feeling well over the past few days. He denies any chest pain or shortness of breath. Denies any gross hematuria. CBC/BMP: 10/01/17 0530 09/30/17 0833 Significant Findings Laboratory Tests Test 09/28/17 20:20 09/28/17 22:15 09/29/17 09:00 09/30/17 08:33 Urine Leukocyte Esterase SMALL (NEG) SMALL (NEG) Urine WBC 20-24 /hpf (0-5) 25-49 /hpf (0-5) Urine WBC Clumps MOD (NONE) Urine Bacteria RARE /hpf (NONE) White Blood Count 18.9 TH/MM3 (4.0-11.0) 19.8 TH/MM3 (4.0-11.0) Neutrophils (%) (Auto) 85.4 % (16.0-70.0) 84.8 % (16.0-70.0) Lymphocytes (%) (Auto) 7.2 % (9.0-44.0) 8.3 % (9.0-44.0) Neutrophils # (Auto) 16.0 TH/MM3 (1.8-7.7) 16.8 TH/MM3 (1.8-7.7) Monocytes # (Auto) 1.2 TH/MM3 (0-0.9) 1.2 TH/MM3 (0-0.9) Estimat Glomerular Filtration Rate 82 ML/MIN (>89) Lipase 62 U/L (73-393) Urine Occult Blood MOD (NEG) Red Blood Count 4.07 MIL/MM3 (4.50-5.90) Hemoglobin 12.7 GM/DL (13.0-17.0) Hematocrit 36.6 % (39.0-51.0) Blood Urea Nitrogen 5 MG/DL (7-18) Random Glucose 114 MG/DL (74-106) Calcium Level 8.2 MG/DL (8.5-10.1) Test 10/01/17 05:30 White Blood Count 14.4 TH/MM3 (4.0-11.0) Red Blood Count 4.17 MIL/MM3 (4.50-5.90) Hemoglobin 12.9 GM/DL (13.0-17.0) Hematocrit 37.7 % (39.0-51.0) Neutrophils (%) (Auto) 78.0 % (16.0-70.0) Neutrophils # (Auto) 11.2 TH/MM3 (1.8-7.7) Monocytes # (Auto) 1.0 TH/MM3 (0-0.9) Imaging Last Impressions Renal Ultrasound 09/29/17 0000 Signed Impressions: Service Date/Time: Friday, September 29, 2017 11:01 - CONCLUSION: 1. Unremarkable kidneys and urinary bladder. 2. Minimally prominent prostate measuring 4.9 x 3.6 x 4.7 cm. Wali Cornejo MD Abdomen/Pelvis CT 09/28/17 0000 Signed Impressions: Service Date/Time: September 22:38 - CONCLUSION: 1. 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 2. Otherwise negative with no acute intraperitoneal or pelvic process to explain current clinical symptoms. Specifically, no findings of renal or ureteral calculi or obstruction. Matt Asencio MD PE at Discharge GENERAL: Well-developed, well-nourished, in no acute distress. alert and orientated HEENT: Head is normocephalic without any lesions or masses noted. Facial features are symmetric. Eyes: Extraocular muscles are intact. Conjunctivae were clear. NECK: Supple without any masses. Trachea midline no deviation. No JVD, CARDIAC: Regular rhythm, regular rate. S1/S2 are heard. No murmurs gallops or rubs. LUNGS: Clear to auscultation bilaterally. No wheeze, rhonchi or rales. No use of accessory muscles on inspiration or expiration. ABDOMEN: Soft, nontender. Nondistended. Bowel sounds heard in all 4 quadrants. No organomegaly or masses. Negative rebound, negative guarding. Positive right CVA tenderness EXTREMITIES: No edema, pulses are equal bilaterally. No cyanosis or clubbing NEUROLOGY: Mood and affect appear appropriate. Cranial nerves II through XII grossly intact. Moving all extremities, speech is clear Hospital Course 41-year-old male who originally presented to emergency department because three- day history of difficulty urinating, bilateral flank pain and was found to have sepsis secondary to influenza infection, clinical pyelonephritis. During the patient's stay he had MAXIMUM TEMPERATURE of 102.7, positive CVA tenderness, urinary tract infection. Patient was started on empiric antibiotics include Rocephin, he was started on antiviral Tamiflu for influenza infection. Patient continued to have fever up until yesterday morning at 4 AM. He did start improving. He was on IV fluids, has tolerated soup today. He is feeling much better. Urine culture does show Pseudomonas. Patient clinically improving. Able to prescribe appropriate antibiotics Levaquin 750 mg daily for 7 days as indicated for complicated urinary tract infection. Patient remain on Tamiflu for 3 more days. Will plan discharge home accordingly. Pt Condition on Discharge: Stable Discharge Disposition: Discharge Home Discharge Time: > 30 minutes Discharge Instructions DIET: Follow Instructions for: As Tolerated, No Restrictions Activities you can perform: Regular-No Restrictions Follow up Referrals: PCP Follow-up - 1 Week New Medications: Levofloxacin (Levofloxacin) 750 Mg Tablet 750 MG PO DAILY for Infection for 5 Days, #5 TAB 0 Refills Ondansetron Odt (Zofran Odt) 4 Mg Tab 4 MG SL Q6HR PRN for Nausea/Vomiting, #30 TAB 0 Refills Hydrocodone/Acetaminophen (Hydrocodone-Acetamin 10-325 mg) 10 Mg-325 Mg Tablet 1 TAB PO Q6H PRN for PAIN SCALE 6 TO 10, #12 TAB Oseltamivir (Tamiflu) 75 Mg Cap 75 MG PO BID for influenza infection for 3 Days, #6 CAP Trevon Ramirez Oct 01, 2017 11:21
[2017-10-02] MEDS ORDERED: EPIP0.3I IM (20:01)
== END 2017-10-01 12:31 | disposition home or self-care (01) | DRG 872 ==
LOC: PHED 19:44 → PHEDA 09-29 01:00 → PH3A 09-29 02:51 → OBSVTOIN 09-29 10:05
PROVIDERS: ADMIT Hospitalist; ATTEND Hospitalist
DX: A41.9 Sepsis, unspecified organism (principal); N12 Tubulo-interstitial nephritis, not specified as acute or chronic; J10.1 Influenza due to other identified influenza virus with other respiratory manifestations; R11.0 Nausea; F41.9 Anxiety disorder, unspecified; M19.90 Unspecified osteoarthritis, unspecified site
CPT/HCPCS: 74176; 76775; 80048; 80053; 81001; 83605; 83690; 85025; 87040; 87077; 87086; 87186; 87804; 96361; 96365; 96375; J0696; J1200; J1885; J2270; J2405; J7030

== ENCOUNTER 2017-10-02 16:50 | Emergency (ER) | payer BC ==
[~2017-10-02] VITALS: Ht 175.3 cm; Wt 77.6 kg
[~2017-10-02 16:50] MED LIST changes: -CYCL1PAK PO; -DOCU1CAP39 PO; +HYDR-3583 PO; -IBUP800 PO; +LEVO750T3 PO; +OSEL75 PO; -OXYC5 PO; +ZOFR4TAB3 SL
[2017-10-02 17:06] VITALS: BP 120/77; PULSE 70; RESP 18; TEMP 98.9; O2SAT 97
[2017-10-02] MEDS ORDERED: SODIUM CHLORIDE 0.9% FLUSH 10 ML FLUSH IV FLUSH PRN (18:00)
[2017-10-02] MEDS ORDERED: LEVOFLOXACIN 750 MG TAB PO ONE (18:00)
--- NOTE | 2017-10-02 18:00 | PD ---
HPI Chief Complaint: Allergic/Adverse Reaction Time Seen by Provider: 17:18 Travel History International Travel<30 days: No Contact w/Intl Traveler<30days: No Traveled to known affect area: No History of Present Illness HPI 41-year-old male who was admitted on 09/29/17 for UTI/sepsis, discharged home yesterday with a prescription for Levaquin, here for evaluation of possible allergic reaction. Patient was on IV Rocephin during his admission. His urine grew out Pseudomonas. He took his first dose of Levaquin yesterday evening, and shortly afterwards he noticed a rash on his back. No tongue or lip swelling. No drooling or stridor. No pruritus. He has an allergy to penicillin, but is unsure what his reaction is as this occurred when he was a child. Patient was also diagnosed with influenza A on 09/29/17. States that his symptoms feel slightly improved from when he was admitted, however he still feels generalized malaise as well as right flank discomfort. PFSH Past Medical History Arthritis: Yes (FROM PAST SX) Asthma: No Anxiety: No Depression: No Cancer: No Cardiovascular Problems: No Chemotherapy: No COPD: No Diabetes: No Diminished Hearing: No Endocrine: No Genitourinary: No Medical other: Yes (SEPSIS) Musculoskeletal: Yes Neurologic: Yes Psychiatric: No Reproductive: No Respiratory: Yes (HX PNEUMOTHORAX) Migraines: Yes Radiation Therapy: No Sleep Apnea: No Tetanus Vaccination: Unknown Past Surgical History Abdominal Surgery: No AICD: No Arteriovenous Shunt: No Body Medical Devices: PLATES/SCREWS Cardiac Surgery: No Ear Surgery: No Endocrine Surgery: No Eye Surgery: No Genitourinary Surgery: No Gynecologic Surgery: No Insulin Pump: No Joint Replacement: No Oral Surgery: No Pacemaker: No Thoracic Surgery: No Tonsillectomy: Yes Other Surgery: Yes (RIGHT KNEE SX/ BILATERAL WRIST SX) Social History Alcohol Use: Yes (3X A WEEK) Tobacco Use: No (MARIJUANA) Substance Use: No Allergies-Medications (Allergen,Severity, Reaction): Coded Allergies: penicillin G (Verified Allergy, Unknown, 10/02/17) Reported Meds & Prescriptions Reported Meds & Active Scripts Active Levofloxacin 750 Mg Tablet 750 Mg PO DAILY 5 Days Zofran Odt (Ondansetron Odt) 4 Mg Tab 4 Mg SL Q6HR PRN Hydrocodone-Acetamin 10-325 mg (Hydrocodone/Acetaminophen) 10 Mg-325 Mg Tablet 1 Tab PO Q6H PRN Tamiflu (Oseltamivir Phosphate) 75 Mg Cap 75 Mg PO BID 3 Days Review of Systems Except as stated in HPI: all other systems reviewed are Neg Physical Exam Narrative GENERAL: Well-developed, well-nourished, comfortable, no apparent distress. SKIN: Focused skin assessment warm/dry. Upper and lower back with several erythematous papules. No petechiae. HEAD: Atraumatic. Normocephalic. EYES: Pupils equal and round. No scleral icterus. No injection or drainage. ENT: No nasal bleeding or discharge. Mucous membranes pink and moist. No tongue or lip swelling. No drooling or stridor. NECK: Trachea midline. No JVD. CARDIOVASCULAR: Regular rate and rhythm. RESPIRATORY: No accessory muscle use. Clear to auscultation. Breath sounds equal bilaterally. GASTROINTESTINAL: Abdomen soft, non-tender, nondistended. MUSCULOSKELETAL: No obvious deformities. No clubbing. No cyanosis. No edema. NEUROLOGICAL: Awake and alert. No obvious cranial nerve deficits. Motor grossly within normal limits. Normal speech. PSYCHIATRIC: Appropriate mood and affect; insight and judgment normal. Data Data Last Documented VS Vital Signs Date Time Temp Pulse Resp B/P (MAP) Pulse Ox O2 Delivery O2 Flow Rate FiO2 10/02/17 18:59 51 16 134/89 (104) 95 Room Air 10/02/17 17:06 98.9 Orders Orders Complete Blood Count With Diff (10/02/17 17:46) Comprehensive Metabolic Panel (10/02/17 17:46) Urinalysis - C+S If Indicated (10/02/17 17:46) Iv Access Insert/Monitor (10/02/17 17:46) Ecg Monitoring (10/02/17 17:46) Oximetry (10/02/17 17:46) Sodium Chloride 0.9% Flush (Ns Flush) (10/02/17 18:00) Levofloxacin (Levaquin) (10/02/17 18:00) Urine Culture (10/02/17 17:50) Potassium Chloride (Kcl) (10/02/17 19:15) Labs Laboratory Tests Test 10/02/17 17:50 10/02/17 17:55 Urine Collection Type CLEAN CATCH Urine Color YELLOW Urine Turbidity CLEAR Urine pH 6.5 Urine Specific [place] 1.010 Urine Protein NEG mg/dL Urine Glucose (UA) NEG mg/dL Urine Ketones NEG mg/dL Urine Occult Blood TRACE Urine Nitrite NEG Urine Bilirubin NEG Urine Urobilinogen 0.2 MG/DL Urine Leukocyte Esterase TRACE Urine RBC 0-2 /hpf Urine WBC 9-14 /hpf Urine Bacteria OCC /hpf Microscopic Urinalysis Comment CULTURE INDICATED White Blood Count 7.4 TH/MM3 Red Blood Count 4.83 MIL/MM3 Hemoglobin 14.8 GM/DL Hematocrit 43.3 % Mean Corpuscular Volume 89.7 FL Mean Corpuscular Hemoglobin 30.6 PG Mean Corpuscular Hemoglobin Concent 34.1 % Red Cell Distribution Width 12.7 % Platelet Count 349 TH/MM3 Mean Platelet Volume 6.6 FL Neutrophils (%) (Auto) 58.1 % Lymphocytes (%) (Auto) 22.6 % Monocytes (%) (Auto) 11.3 % Eosinophils (%) (Auto) 3.7 % Basophils (%) (Auto) 4.3 % Neutrophils # (Auto) 4.3 TH/MM3 Lymphocytes # (Auto) 1.7 TH/MM3 Monocytes # (Auto) 0.8 TH/MM3 Eosinophils # (Auto) 0.3 TH/MM3 Basophils # (Auto) 0.3 TH/MM3 CBC Comment DIFF FINAL Differential Comment Blood Urea Nitrogen 9 MG/DL Creatinine 0.85 MG/DL Random Glucose 103 MG/DL Total Protein 8.2 GM/DL Albumin 3.6 GM/DL Calcium Level 9.3 MG/DL Alkaline Phosphatase 69 U/L Aspartate Amino Transf (AST/SGOT) 20 U/L Alanine Aminotransferase (ALT/SGPT) 23 U/L Total Bilirubin 0.2 MG/DL Sodium Level 138 MEQ/L Potassium Level 3.2 MEQ/L Chloride Level 101 MEQ/L Carbon Dioxide Level 28.5 MEQ/L Anion Gap 9 MEQ/L Estimat Glomerular Filtration Rate 99 ML/MIN [facility] Medical Decision Making Medical Screen Exam Complete: Yes Emergency Medical Condition: Yes Differential Diagnosis Allergic reaction, adverse medication reaction, viral exanthem Narrative Course Vital signs show heart rate 70, blood pressure 120/77, pulse ox 97% on room air , oral temperature 98.9F. I discussed the case with on-call infectious disease physician Dr. De La Paz who recommends that the patient be readmitted for IV antibiotics. This was discussed with the patient, and he does not want to be readmitted. I told him that I would not be able to arrange for PICC line for outpatient IV antibiotics from the emergency department, however this could be arranged if he were admitted for overnight observation by case management and infectious disease. Patient prefers to try taking another dose of Levaquin and being observed here in the emergency department. I highly advised against this, however this is what the patient strongly wishes to do. CBC: WBC 7.4, hemoglobin 14.8, hematocrit 43.3, platelets 349. CMP is remarkable for potassium 3.2 which was replaced orally. UA: Trace leukocyte esterase, 9-14 WBCs, occasional bacteria. Patient was given a dose of Levaquin here in the emergency department and was observed for 2 hours without adverse reaction. Rash remains the same in appearance as when he first arrived. There are several papules on his back. No petechiae. No intraoral lesions. No tongue or lip swelling. No skin blistering. Plan at this time is to discharge him home with a prescription for an EpiPen. He will continue to take Levaquin. I will give him the name of the infectious disease doctor with whom to try to make an appointment with this week. He was advised on when to return to the emergency department. He verbalizes understanding and agreement with plan. Diagnosis Primary Impression: Rash Additional Impression: UTI (urinary tract infection) Qualified Codes: N39.0 - Urinary tract infection, site not specified Referrals: Say De La Paz MD 3 days Infectious disease Primary Care Physician 3 days Additional Instructions: Follow-up with a primary care physician this week. Follow-up with infectious disease Dr. De La Paz this week. Return to the emergency department for worsening symptoms or any other concerns as discussed. Scripts Epinephrine Inj (Epipen 2-Woody Inj) 0.3 Mg/0.3 Ml Pfpen 0.3 MG IM ONCE Y for ALLERGIC REACTION, #1 PACK 0 Refills Prov: Mustapha Merida MD 10/02/17 Disposition: 01 DISCHARGE HOME Condition: Stable Mustapha Merida MD Oct 02, 2017 18:00
[2017-10-02 18:01] VITALS: O2SAT 98
[2017-10-02 18:09] LABS: BILIRUBIN, URINE NEG (NEG); BLOOD, URINE TRACE (NEG); GLUCOSE,URINE NEG (NEG); KETONE, URINE NEG (NEG); NITRITE,URINE NEG (NEG); PH, URINE 6.5 (5.0-8.5); URINE COLOR YELLOW (YELLW/STRAW); URINE LEUKOCYTE ESTERASE TRACE (NEG)
[2017-10-02 18:11] LABS: AUTOMATED NEUTROPHIL # 4.3 TH/MM3 (1.8-7.7); BASOPHIL # 0.3 TH/MM3 (0-0.2); BASOPHIL % 4.3 % (0.0-2.0); EOSINOPHIL # 0.3 TH/MM3 (0-0.4); EOSINOPHIL % 3.7 % (0.0-4.0); HEMATOCRIT 43.3 % (39.0-51.0); HEMOGLOBIN 14.8 GM/DL (13.0-17.0); LYMPH % 22.6 % (9.0-44.0); LYMPHOCYTE # 1.7 TH/MM3 (1.0-4.8); MEAN CELL VOLUME 89.7 FL (80.0-100.0); MEAN CORPUSCULAR HEMOGLOBIN 30.6 PG (27.0-34.0); MEAN CORPUSCULAR HGB CONC 34.1 % (32.0-36.0); MEAN PLATELET VOLUME 6.6 FL (7.0-11.0); MONO % 11.3 % (0.0-8.0); MONOCYTE # 0.8 TH/MM3 (0-0.9); NEUT % 58.1 % (16.0-70.0); PLATELET COUNT 349 TH/MM3 (150-450); RED BLOOD COUNT 4.83 MIL/MM3 (4.50-5.90); RED CELL DISTRIBUTION WIDTH 12.7 % (11.6-17.2); WHITE BLOOD COUNT 7.4 TH/MM3 (4.0-11.0)
[2017-10-02 18:13] LABS: CHLORIDE 101 MEQ/L (98-107); SODIUM (NA) 138 MEQ/L (136-145)
[2017-10-02 18:23] LABS: BACTERIA, URINE OCC /hpf; RBC, URINE 0-2 /hpf (0-3)
[2017-10-02 18:26] LABS: ALBUMIN 3.6 GM/DL (3.4-5.0); ALKALINE PHOSPHATASE 69 U/L (45-117); ALT (GPT) 23 U/L (12-78); AST (GOT) 20 U/L (15-37); BICARBONATE 28.5 MEQ/L (21.0-32.0); BLOOD UREA NITROGEN 9 MG/DL (7-18); CALCIUM 9.3 MG/DL (8.5-10.1); CREATININE 0.85 MG/DL (0.60-1.30); GLOMERULAR FILTRATION RATE 99 ML/MIN (>89); GLUCOSE,RANDOM 103 MG/DL (74-106); TOTAL BILIRUBIN ADULT 0.2 MG/DL (0.2-1.0); TOTAL PROTEIN 8.2 GM/DL (6.4-8.2)
[2017-10-02 18:36] VITALS: PULSE 58; RESP 16; O2SAT 96
[2017-10-02 18:59] VITALS: BP 134/89; PULSE 51; RESP 16; O2SAT 95
[2017-10-02] MEDS ORDERED: POTASSIUM CHLORIDE 20 MEQ CONTROLLED RELEASE TAB PO ONE (19:15)
[2017-10-02] MEDS ORDERED: EPIP0.3I IM (20:01)
[2017-10-02 20:02] VITALS: BP 158/92; PULSE 54; RESP 16; O2SAT 95
== END 2017-10-02 20:10 | disposition home or self-care (01) ==
LOC: PHEFT 16:50
DX: R21 Rash and other nonspecific skin eruption (principal); N39.0 Urinary tract infection, site not specified
CPT/HCPCS: 80053; 81001; 85025; 87086; 99283

== ENCOUNTER 2018-01-03 08:03 | Emergency (ER) | payer BC ==
[~2018-01-03] VITALS: Ht 175.3 cm; Wt 76.5 kg
[~2018-01-03 08:03] MED LIST changes: +EPIP0.3I IM
[2018-01-03 08:18] VITALS: BP 160/89; PULSE 70; RESP 16; TEMP 97.6; O2SAT 98
[2018-01-03] MEDS ORDERED: SODIUM CHLOR 0.9% 1000 ML INJ 1,000 ML IV SCH (09:14)
[2018-01-03] MEDS ORDERED: ONDANSETRON ODT 4 MG TAB PO ONE (09:15)
[2018-01-03] MEDS ORDERED: MORPHINE SULFATE 4 MG/ML INJ IV PUSH ONE (09:15)
[2018-01-03] MEDS ORDERED: SODIUM CHLORIDE 0.9% FLUSH 10 ML FLUSH IVF PRN (09:15)
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
[2018-01-03 10:02] LABS: AUTOMATED NEUTROPHIL # 6.9 TH/MM3 (1.8-7.7); BASOPHIL # 0.2 TH/MM3 (0-0.2); BASOPHIL % 1.7 % (0.0-2.0); EOSINOPHIL # 0.5 TH/MM3 (0-0.4); EOSINOPHIL % 4.5 % (0.0-4.0); HEMOGLOBIN 15.7 GM/DL (13.0-17.0); LYMPH % 19.7 % (9.0-44.0); MEAN CELL VOLUME 92.5 FL (80.0-100.0); MEAN CORPUSCULAR HEMOGLOBIN 30.3 PG (27.0-34.0); MEAN CORPUSCULAR HGB CONC 32.7 % (32.0-36.0); MONO % 4.6 % (0.0-8.0); MONOCYTE # 0.5 TH/MM3 (0-0.9); NEUT % 69.5 % (16.0-70.0); PLATELET COUNT 337 TH/MM3 (150-450); RED BLOOD COUNT 5.19 MIL/MM3 (4.50-5.90); RED CELL DISTRIBUTION WIDTH 13.1 % (11.6-17.2); WHITE BLOOD COUNT 10.1 TH/MM3 (4.0-11.0)
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
[2018-01-03 10:06] LABS: BILIRUBIN, URINE NEG (NEG); BLOOD, URINE NEG (NEG); GLUCOSE,URINE NEG (NEG); KETONE, URINE NEG (NEG); NITRITE,URINE NEG (NEG); URINE COLOR YELLOW (YELLW/STRAW); URINE LEUKOCYTE ESTERASE NEG (NEG)
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
[2018-01-03 10:11] VITALS: O2SAT 96
[2018-01-03 10:12] VITALS: BP 133/91; PULSE 51; RESP 16; O2SAT 98
[2018-01-03 10:16] LABS: CHLORIDE 102 MEQ/L (98-107); SODIUM (NA) 138 MEQ/L (136-145)
[2018-01-03 10:19] LABS: ALBUMIN 4.4 GM/DL (3.4-5.0); BICARBONATE 31.9 MEQ/L (21.0-32.0); CALCIUM 9.4 MG/DL (8.5-10.1); GLUCOSE,RANDOM 98 MG/DL (74-106)
[2018-01-03 10:20] LABS: BLOOD UREA NITROGEN 15 MG/DL (7-18); PROTHROMBIN TIME - PATIENT 10.3 SEC (9.8-11.6)
[2018-01-03 10:22] LABS: CREATININE 0.95 MG/DL (0.60-1.30); GLOMERULAR FILTRATION RATE 87 ML/MIN (>89)
[2018-01-03 10:23] LABS: AST (GOT) 20 U/L (15-37)
[2018-01-03 10:24] LABS: TOTAL BILIRUBIN ADULT 0.5 MG/DL (0.2-1.0); TOTAL PROTEIN 8.4 GM/DL (6.4-8.2)
[2018-01-03 10:25] LABS: ALKALINE PHOSPHATASE 99 U/L (45-117)
[2018-01-03 10:27] LABS: ALT (GPT) 45 U/L (12-78)
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
[2018-01-03] MEDS ORDERED: IOHEXOL 350 MG/ML 10 ML VIAL (for RAD DIAG) IVCONTRAST ONE (11:07)
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
[2018-01-03] MEDS ORDERED: NORC5TAB PO (11:28)
== END 2018-01-03 12:01 | disposition home or self-care (01) ==
LOC: PHED 08:03 → PHEFT 12:01
DX: S22.32XA Fracture of one rib, left side, initial encounter for closed fracture (principal); V86.56XA Driver of dirt bike or motor/cross bike injured in nontraffic accident, initial encounter
CPT/HCPCS: 71045; 71260; 73000; 73030; 74177; 80053; 81001; 85025; 85610; 85730; 94150; 96361; 96374; 99285; J2270; J7030; Q9967